=== PATIENT | male | born 1980 | race African-American/Black ===

== ENCOUNTER 2020-07-31 06:41 | Day surgery (SDC) | payer OTHER, SELFPAY ==
[~2020-07-31] VITALS: Ht 177.8 cm; Wt 64.0 kg
[2020-07-31] MEDS ORDERED: MIDAZOLAM 5 MG/5 ML VIAL ONE (08:06)
[2020-07-31] MEDS ORDERED: fentaNYL citrate 0.05 MG/ML VIAL ONE (08:06)
[2020-07-31] MEDS ORDERED: LIDOCAINE 2% 100 MG/5 ML UJET TP ONE (08:07)
[2020-07-31] MEDS ORDERED: diphenhydrAMINE 50 MG/ML VIAL ONE (09:18)
[2020-07-31] MEDS ORDERED: diphenhydrAMINE 50 MG/ML VIAL IVP ONE (09:25)
[2020-07-31] MEDS ORDERED: fentaNYL citrate 0.05 MG/ML VIAL IVP ONE (09:25)
[2020-07-31] MEDS ORDERED: MIDAZOLAM 2 MG/2 ML VIAL IVP ONE (09:25)
== END 2020-07-31 09:40 | disposition home or self-care (01) ==
LOC: MDS 06:41 → MFCC 06:45 → MDS 09:40
PROVIDERS: ATTEND Internal Medicine Gastroenterology
DX: K62.5 Hemorrhage of anus and rectum (principal); K63.5 Polyp of colon; I48.91 Unspecified atrial fibrillation; T62.91XA Toxic effect of unspecified noxious substance eaten as food, accidental (unintentional), initial encounter; Z98.890 Other specified postprocedural states; Z79.899 Other long term (current) drug therapy; Z20.828 Contact with and (suspected) exposure to other viral communicable diseases
CPT/HCPCS: 45380; 88305; J1200; J2250; J3010; U0003